=== PATIENT | female | born 1990 | race Asian ===

== ENCOUNTER 2018-05-12 17:47 | Emergency (ER) | payer OTHER ==
[~2018-05-12] VITALS: Ht 172.7 cm; Wt 70.8 kg
[2018-05-12 18:43] LABS: PLATELET COUNT 273 K/uL (152-353)
[2018-05-12 18:56] LABS: POTASSIUM 3.6 mmol/L (3.6-5.2)
[2018-05-12 19:10] VITALS: BP 105/61; TEMP 97.8
== END 2018-05-12 19:10 | disposition home or self-care (01) ==
LOC: ED 17:47
DX: K08.89 Other specified disorders of teeth and supporting structures (principal); K04.7 Periapical abscess without sinus
CPT/HCPCS: 36415; 80053; 85027; 99283